=== PATIENT | male | born 1950 | race Caucasian/White ===

== ENCOUNTER 2017-12-20 11:58 | Emergency (ER) | payer MEDICARE, SELFPAY ==
[2017-12-20 12:23] VITALS: BP 128/73; PULSE 94; RESP 18; TEMP 36.9; O2SAT 98; BMI 28.5
[2017-12-20] MEDS: SODIUM CHLORIDE 0.9% 1,000 ML 150 ML IV (13:02)
[2017-12-20 13:06] LABS: Add Manual Diff / Slide Review NO; Basophils Percent Auto 0.7 % (0-2); Eosinophils Percent Auto 1.9 % (2-4); Hematocrit 33.3 % (41-53); Hemoglobin 11.4 g/dL (13.5-17.5); Lymphocytes Percent Auto 20.9 % (25-40); Mean Corpuscular HGB Conc 34.3 % (30-36); Mean Corpuscular Hemoglobin 33.3 PG (26-34); Monocytes Percent Auto 18.6 % (3-14); Neutrophils Absolute Auto 5500 /uL (3000-5900); Neutrophils Percent Auto 57.9 % (50-75); Platelet Count 173 X10^3/uL (150-400); Red Blood Cell Count 3.43 X10^6/uL (4.5-5.9); Red Cell Distribution Width 13.9 % (11.6-14.8); White Blood Cell Count 9.4 X10^3/uL (4.5-11.0)
[2017-12-20 13:18] LABS: Alanine Aminotransferase 25 IU/L (21-72); Albumin 4.7 g/dL (3.5-5.0); Albumin Globulin Ratio 1.4 (1.0-2.8); Alkaline Phosphatase 53 U/L (38-126); Aspartate Aminotransferase 19 IU/L (17-59); BUN Creatinine Ratio 16.4 (6-22); Bilirubin Total 0.6 mg/dL (0.2-1.3); Blood Urea Nitrogen 18 mg/dL (9-20); Calcium 9.2 mg/dL (8.4-10.2); Carbon Dioxide 22 mmol/L (22-32); Chloride 108 mmol/L (98-107); Estimated Glomerular Filt Rate > 60.0 mL/min (>60); Globulin 3.4 g/dL (1.7-4.1); Glucose 105 mg/dL (80-110); HEMOLYSIS 21 (0-50); Lipase 55 U/L (23-300); Potassium 4.2 mmol/L (3.4-5.1); Sodium 142 mmol/L (137-145); Total Protein 8.1 g/dL (6.3-8.2)
--- NOTE | 2017-12-20 14:06 | ED.ABDPAIN ---
HPI - Abdominal Pain <Penny Goode PA-C - Last Filed: 12/20/17 22:24> General Chief Complaint: Abdominal Pain Stated Complaint: lower right abdominal pain Time Seen by Provider: 12/20/17 13:47 Source: patient Mode of arrival: ambulatory Limitations: no limitations History of Present Illness HPI narrative: This 67-year-old male comes in to to 1 month history of gradually worsening abdominal pain. He states this is mainly on the right side, indicates the right upper quadrant, sometimes he can feel this in the flank area as well. He states that initially this started after eating hamburger and he thought it was food poisoning, however it seems to wax and wane regardless of what he eats. He states he ate pizza last week and it definitely her more afterwards and cause some nausea. He states that he had a few mozzarella sticks last night that seemed to cause a lot of bloating. He does not think bland foods are bothersome. He states that he has not had any vomiting and only a few episodes of nausea. He states he felt a little chilled this morning with a brief temperature of 99?, otherwise no fever, chills, or sweats. He denies any chest pain or dyspnea. He states that when pain is fairly severe and can be hard to take a deep breath at times. He denies any reflux and states he does have this and pain is not the same. He states it is not like his previous ulcer either. He states he has had normal bowel movements, no blood in the stools. He denies any urinary symptoms. He denies any rash or other new c/o Related Data Home Medications Medication Instructions Recorded Confirmed meloxicam [Mobic] 15 mg PO [facility] #30 tab 01/01/16 Previous Rx's Medication Instructions Recorded hydrocodone-acetaminophen [[place]] 1 tab PO .HS PRN #5 tab 12/20/17 Allergies Allergy/AdvReac Type Severity Reaction Status Date / Time No Known Drug Allergies Allergy Verified 12/20/17 12:22 Review of Systems <Penny Goode PA-C - Last Filed: 12/20/17 22:24> Review of Systems All systems reviewed & are unremarkable except as noted in HPI and below PFSH <Penny Goode PA-C - Last Filed: 12/20/17 22:24> Comment: ETOH 1-2/day Exam <Penny Goode PA-C - Last Filed: 12/20/17 22:24> Narrative Exam Narrative: GENERAL APPEARANCE: Patient sitting comfortably, in no distress, playing a game on cell phone. HEENT: PERRL, EOMI, no scleral icterus NECK: Supple LUNGS: Clear to auscultation bilaterally. HEART: Rate and rhythm regular, normal S1 and S2, no S3 or S4. ABDOMEN: Soft, nondistended, bowel sounds present x 4 quadrants, no masses palpable. Right upper quadrant is tender with positive Haynes's sign. No rebound. No guarding. Minimal tenderness right mid and lower quadrant. Mild tenderness over the right flank. None on the left. Liver border is palpable at the costal margin, no splenomegaly. EXTREMITIES: No edema, no calf tenderness DERMATOLOGIC: No jaundice or exanthem NEUROLOGIC: Alert and oriented with normal speech and coordination Initial Vital Signs Initial Vital Signs: Vital Signs Temperature 98.4 F 12/20/17 12:23 Pulse Rate 94 H 12/20/17 12:23 Respiratory Rate 18 12/20/17 12:23 Blood Pressure 128/73 12/20/17 12:23 Pulse Oximetry 98 12/20/17 12:23 <Lurdes Brooks DO - Last Filed: 12/21/17 10:08> Initial Vital Signs Initial Vital Signs: Vital Signs Temperature 98.4 F 12/20/17 12:23 Pulse Rate 94 H 12/20/17 12:23 Respiratory Rate 18 12/20/17 12:23 Blood Pressure 128/73 12/20/17 12:23 Pulse Oximetry 98 12/20/17 12:23 Course <Penny Goode PA-C - Last Filed: 12/20/17 22:24> Additional Information: Patient is not having any acutely worsening pain today. He is not having vomiting or fever. He has had ongoing symptoms for about a month. Advised no acute findings on lab work or ultrasound, however this does need follow-up and may need further imaging such as a CT scan. He is agreeable and will follow up with his PCP for further evaluation. He agreed to return here if any acutely worsening symptoms in the interim Orders Ordered: Discontinued Medications Sodium Chloride (Normal Saline 0.9%) 1,000 mls @ 150 mls/hr IV CONT LAUREN Last Admin: 12/20/17 13:02 Dose: 150 mls/hr Vital Signs - 8 hr 12/20/17 15:22 Pulse Rate 77 Blood Pressure [Right Arm] 124/71 Pulse Oximetry 100 <Lurdes Brooks DO - Last Filed: 12/21/17 10:08> Orders Ordered: Discontinued Medications Sodium Chloride (Normal Saline 0.9%) 1,000 mls @ 150 mls/hr IV CONT LAUREN Last Admin: 12/20/17 13:02 Dose: 150 mls/hr Vital Signs - 8 hr 12/20/17 15:22 Pulse Rate 77 Blood Pressure [Right Arm] 124/71 Pulse Oximetry 100 MDM - Abdominal Pain <Penny Goode PA-C - Last Filed: 12/20/17 22:24> Lab Data Attestation: I reviewed the patient's lab results. Result diagrams: 12/20/17 13:00 12/20/17 13:00 Lab Results 12/20/17 12/20/17 Range/Units 13:00 13:00 WBC 9.4 (4.5-11.0) X10^3/uL RBC 3.43 L (4.5-5.9) X10^6/uL Hgb 11.4 L (13.5-17.5) g/dL Hct 33.3 L (41-53) % MCV 97.0 (80-100) fL MCH 33.3 (26-34) PG MCHC 34.3 (30-36) % RDW 13.9 (11.6-14.8) % Plt Count 173 (150-400) X10^3/uL Neut % (Auto) 57.9 (50-75) % Lymph % (Auto) 20.9 L (25-40) % [place] % (Auto) 18.6 H (3-14) % Eos % (Auto) 1.9 L (2-4) % Baso % (Auto) 0.7 (0-2) % Neut # (Auto) 5500 (0649-5802) /uL Sodium 142 (137-145) mmol/L Potassium 4.2 (3.4-5.1) mmol/L Chloride 108 H (98-107) mmol/L Carbon Dioxide 22 (22-32) mmol/L BUN 18 (9-20) mg/dL Creatinine 1.10 (0.66-1.25) mg/dL Estimated GFR > 60.0 (>60) mL/min BUN/Creatinine Ratio 16.4 (6-22) Glucose 105 (80-110) mg/dL Calcium 9.2 (8.4-10.2) mg/dL Total Bilirubin 0.6 (0.2-1.3) mg/dL AST 19 (17-59) IU/L ALT 25 (21-72) IU/L Alkaline Phosphatase 53 (38-126) U/L Total Protein 8.1 (6.3-8.2) g/dL Albumin 4.7 (3.5-5.0) g/dL Globulin 3.4 (1.7-4.1) g/dL Albumin/Globulin Ratio 1.4 (1.0-2.8) Lipase 55 (23-300) U/L Imaging Data US - abdomen: Radiologist's impression: [address] [address] Ultrasound Report Signed Patient: Naresh Olvera MR#: [id number] : 1950 Acct:[id number] Age/Sex: 67 / M Date of Service: 12/20/17 Loc: ED Accession Number: [id number] Procedure: US abdomen complete Ordering Provider: Penny Goode P.A-C PROCEDURE: US ABDOMEN COMPLETE INDICATIONS: RIGHT UPPER QUADRANT PAIN TECHNIQUE: Real-time scanning was performed of the abdominal and retroperitoneal organs, with image documentation. COMPARISON: [facility], CT, NECK/CHEST/ABD/PEL W/CONT (P), 05/30/2013, 10:27. FINDINGS: Liver: Liver is normal in size. There is a 12 x 16 x 19 mm focus of hypoechogenicity within the posterior right lobe most suggestive of cyst. It is unchanged. Gallbladder: Gallbladder demonstrates no gross abnormality. It is not well-visualized secondary to patient body habitus. The wall appears to be within normal limits measuring approximately 1.9 mm. Biliary ducts: Intrahepatic bile ducts are non-dilated. Extrahepatic bile duct caliber measures 4.3 mm. Normal is 6-7 mm or less in diameter, or 10 mm or less post-cholecystectomy. Pancreas: Not visualized Spleen: Spleen is normal in size and homogeneous in echotexture. Kidneys: Kidneys are normal in size and echotexture. Right kidney measures 8.4 cm long; left kidney measures 10.5 cm long. No hydronephrosis or nephrolithiasis. No solid masses. Aorta: Visualized aorta is normal in caliber at less than 3 cm. Iliacs: Proximal common iliac arteries are normal in caliber at less than 2.5 cm. IVC: Intrahepatic inferior vena cava is patent. Miscellaneous: No free abdominal fluid. IMPRESSION: 1. No acute visualized cause of pain. Dictated by: Radha Mauricio M.D. on 12/20/2017 at 14:25 Approved by: Radha Mauricio M.D. on 12/20/2017 at 14:26 <Lurdes Brooks DO - Last Filed: 12/21/17 10:08> Lab Data Lab Results 12/20/17 12/20/17 Range/Units 13:00 13:00 WBC 9.4 (4.5-11.0) X10^3/uL RBC 3.43 L (4.5-5.9) X10^6/uL Hgb 11.4 L (13.5-17.5) g/dL Hct 33.3 L (41-53) % MCV 97.0 (80-100) fL MCH 33.3 (26-34) PG MCHC 34.3 (30-36) % RDW 13.9 (11.6-14.8) % Plt Count 173 (150-400) X10^3/uL Neut % (Auto) 57.9 (50-75) % Lymph % (Auto) 20.9 L (25-40) % [place] % (Auto) 18.6 H (3-14) % Eos % (Auto) 1.9 L (2-4) % Baso % (Auto) 0.7 (0-2) % Neut # (Auto) 5500 (5323-4588) /uL Sodium 142 (137-145) mmol/L Potassium 4.2 (3.4-5.1) mmol/L Chloride 108 H (98-107) mmol/L Carbon Dioxide 22 (22-32) mmol/L BUN 18 (9-20) mg/dL Creatinine 1.10 (0.66-1.25) mg/dL Estimated GFR > 60.0 (>60) mL/min BUN/Creatinine Ratio 16.4 (6-22) Glucose 105 (80-110) mg/dL Calcium 9.2 (8.4-10.2) mg/dL Total Bilirubin 0.6 (0.2-1.3) mg/dL AST 19 (17-59) IU/L ALT 25 (21-72) IU/L Alkaline Phosphatase 53 (38-126) U/L Total Protein 8.1 (6.3-8.2) g/dL Albumin 4.7 (3.5-5.0) g/dL Globulin 3.4 (1.7-4.1) g/dL Albumin/Globulin Ratio 1.4 (1.0-2.8) Lipase 55 (23-300) U/L Discharge Plan Departure Patient Disposition: Home Clinical Impression: Intermittent right upper quadrant abdominal pain Discharge Date/Time: 12/20/17 15:39 Interventions: ED Discharge Assessment Last Done: 12/20/17 15:38 Instructions: DI for Abdominal Pain-Adult Activity Restrictions/Additional Instructions: Please return as we talked about if you have any acutely worsening symptoms, or new symptoms such as persistent vomiting or high fever. Your lab work and ultrasound did not show any acute findings on the crown and bridge dental lab technician reading today. I will phone you if the radiologist finds any other concerns. Please call your PCP today and schedule a follow-up appointment as she may want to have you do other studies such as a CT scan. You should avoid fatty foods in the interim to see if that is helpful, and please follow up with her in the next week. I have given you a prescription for a few hydrocodone/acetaminophen in case you need to take 1 at night for pain. Prescriptions: New hydrocodone-acetaminophen [[place]] 5-325 mg tablet 1 tab PO .HS PRN (Reason: abdominal pain) Qty: 5 RF: 0 No Action meloxicam [Mobic] 15 MG tablet 15 mg PO [facility] Qty: 30 RF: 0 Referrals: Emerita James [Other] <Lurdes Brooks, DO - Last Filed: 12/21/17 10:08> Cosign ED Attending Jose Attestation: I was immediately available in the department for consultation. Documentation has been reviewed. I agree with assessment and plan.
--- NOTE | 2017-12-20 14:28 | DI.US.S_ITS ---
PROCEDURE: US ABDOMEN COMPLETE INDICATIONS: RIGHT UPPER QUADRANT PAIN TECHNIQUE: Real-time scanning was performed of the abdominal and retroperitoneal organs, with image documentation. COMPARISON: [facility], CT, NECK/CHEST/ABD/PEL W/CONT (P), 05/30/2013, 10:27. FINDINGS: Liver: Liver is normal in size. There is a 12 x 16 x 19 mm focus of hypoechogenicity within the posterior right lobe most suggestive of cyst. It is unchanged. Gallbladder: Gallbladder demonstrates no gross abnormality. It is not well-visualized secondary to patient body habitus. The wall appears to be within normal limits measuring approximately 1.9 mm. Biliary ducts: Intrahepatic bile ducts are non-dilated. Extrahepatic bile duct caliber measures 4.3 mm. Normal is 6-7 mm or less in diameter, or 10 mm or less post-cholecystectomy. Pancreas: Not visualized Spleen: Spleen is normal in size and homogeneous in echotexture. Kidneys: Kidneys are normal in size and echotexture. Right kidney measures 8.4 cm long; left kidney measures 10.5 cm long. No hydronephrosis or nephrolithiasis. No solid masses. Aorta: Visualized aorta is normal in caliber at less than 3 cm. Iliacs: Proximal common iliac arteries are normal in caliber at less than 2.5 cm. IVC: Intrahepatic inferior vena cava is patent. Miscellaneous: No free abdominal fluid. IMPRESSION: 1. No acute visualized cause of pain. Dictated by: Radha Mauricio M.D. on 12/20/2017 at 14:25 Approved by: Radha Mauricio M.D. on 12/20/2017 at 14:26
--- NOTE | 2017-12-20 14:38 | ED_ITS ---
HPI - Abdominal Pain <Penny Goode PA-C - Last Filed: 12/20/17 22:24> General Chief Complaint: Abdominal Pain Stated Complaint: lower right abdominal pain Time Seen by Provider: 12/20/17 13:47 Source: patient Mode of arrival: ambulatory Limitations: no limitations History of Present Illness HPI narrative: This 67-year-old male comes in to to 1 month history of gradually worsening abdominal pain. He states this is mainly on the right side , indicates the right upper quadrant, sometimes he can feel this in the flank area as well. He states that initially this started after eating hamburger and he thought it was food poisoning, however it seems to wax and wane regardless of what he eats. He states he ate pizza last week and it definitely her more afterwards and cause some nausea. He states that he had a few mozzarella sticks last night that seemed to cause a lot of bloating. He does not think bland foods are bothersome. He states that he has not had any vomiting and only a few episodes of nausea. He states he felt a little chilled this morning with a brief temperature of 99?, otherwise no fever, chills, or sweats. He denies any chest pain or dyspnea. He states that when pain is fairly severe and can be hard to take a deep breath at times. He denies any reflux and states he does have this and pain is not the same. He states it is not like his previous ulcer either. He states he has had normal bowel movements, no blood in the stools. He denies any urinary symptoms. He denies any rash or other new c/o Related Data Home Medications Medication Instructions Recorded Confirmed meloxicam [Mobic] 15 mg PO [facility] #30 tab 01/01/16 Previous Rx's Medication Instructions Recorded hydrocodone-acetaminophen [[place]] 1 tab PO .HS PRN #5 tab 12/20/17 Allergies Allergy/AdvReac Type Severity Reaction Status Date / Time No Known Drug Allergies Allergy Verified 12/20/17 12:22 Review of Systems <Penny Goode PA-C - Last Filed: 12/20/17 22:24> Review of Systems All systems reviewed & are unremarkable except as noted in HPI and below PFSH <Penny Goode PA-C - Last Filed: 12/20/17 22:24> Comment: ETOH 1-2/day Exam <Penny Goode PA-C - Last Filed: 12/20/17 22:24> Narrative Exam Narrative: GENERAL APPEARANCE: Patient sitting comfortably, in no distress , playing a game on cell phone. HEENT: PERRL, EOMI, no scleral icterus NECK: Supple LUNGS: Clear to auscultation bilaterally. HEART: Rate and rhythm regular, normal S1 and S2, no S3 or S4. ABDOMEN: Soft, nondistended, bowel sounds present x 4 quadrants, no masses palpable. Right upper quadrant is tender with positive Haynes's sign. No rebound. No guarding. Minimal tenderness right mid and lower quadrant. Mild tenderness over the right flank. None on the left. Liver border is palpable at the costal margin, no splenomegaly. EXTREMITIES: No edema, no calf tenderness DERMATOLOGIC: No jaundice or exanthem NEUROLOGIC: Alert and oriented with normal speech and coordination Initial Vital Signs Initial Vital Signs: Vital Signs Temperature 98.4 F 12/20/17 12:23 Pulse Rate 94 H 12/20/17 12:23 Respiratory Rate 18 12/20/17 12:23 Blood Pressure 128/73 12/20/17 12:23 Pulse Oximetry 98 12/20/17 12:23 <Lurdes Brooks DO - Last Filed: 12/21/17 10:08> Initial Vital Signs Initial Vital Signs: Vital Signs Temperature 98.4 F 12/20/17 12:23 Pulse Rate 94 H 12/20/17 12:23 Respiratory Rate 18 12/20/17 12:23 Blood Pressure 128/73 12/20/17 12:23 Pulse Oximetry 98 12/20/17 12:23 Course <Penny Goode PA-C - Last Filed: 12/20/17 22:24> Additional Information: Patient is not having any acutely worsening pain today. He is not having vomiting or fever. He has had ongoing symptoms for about a month. Advised no acute findings on lab work or ultrasound, however this does need follow-up and may need further imaging such as a CT scan. He is agreeable and will follow up with his PCP for further evaluation. He agreed to return here if any acutely worsening symptoms in the interim Orders Ordered: Discontinued Medications Sodium Chloride (Normal Saline 0.9%) 1,000 mls @ 150 mls/hr IV CONT LAUREN Last Admin: 12/20/17 13:02 Dose: 150 mls/hr Vital Signs - 8 hr 12/20/17 15:22 Pulse Rate 77 Blood Pressure [Right Arm] 124/71 Pulse Oximetry 100 <Lurdes Brooks DO - Last Filed: 12/21/17 10:08> Orders Ordered: Discontinued Medications Sodium Chloride (Normal Saline 0.9%) 1,000 mls @ 150 mls/hr IV CONT LAUREN Last Admin: 12/20/17 13:02 Dose: 150 mls/hr Vital Signs - 8 hr 12/20/17 15:22 Pulse Rate 77 Blood Pressure [Right Arm] 124/71 Pulse Oximetry 100 MDM - Abdominal Pain <Penny Goode PA-C - Last Filed: 12/20/17 22:24> Lab Data Attestation: I reviewed the patient's lab results. Result diagrams: 12/20/17 13:00 12/20/17 13:00 Lab Results 12/20/17 12/20/17 Range/Units 13:00 13:00 WBC 9.4 (4.5-11.0) X10^3/uL RBC 3.43 L (4.5-5.9) X10^6/uL Hgb 11.4 L (13.5-17.5) g/dL Hct 33.3 L (41-53) % MCV 97.0 (80-100) fL MCH 33.3 (26-34) PG MCHC 34.3 (30-36) % RDW 13.9 (11.6-14.8) % Plt Count 173 (150-400) X10^3/uL Neut % (Auto) 57.9 (50-75) % Lymph % (Auto) 20.9 L (25-40) % [place] % (Auto) 18.6 H (3-14) % Eos % (Auto) 1.9 L (2-4) % Baso % (Auto) 0.7 (0-2) % Neut # (Auto) 5500 (1090-1105) /uL Sodium 142 (137-145) mmol/L Potassium 4.2 (3.4-5.1) mmol/L Chloride 108 H (98-107) mmol/L Carbon Dioxide 22 (22-32) mmol/L BUN 18 (9-20) mg/dL Creatinine 1.10 (0.66-1.25) mg/dL Estimated GFR > 60.0 (>60) mL/min BUN/Creatinine Ratio 16.4 (6-22) Glucose 105 (80-110) mg/dL Calcium 9.2 (8.4-10.2) mg/dL Total Bilirubin 0.6 (0.2-1.3) mg/dL AST 19 (17-59) IU/L ALT 25 (21-72) IU/L Alkaline Phosphatase 53 (38-126) U/L Total Protein 8.1 (6.3-8.2) g/dL Albumin 4.7 (3.5-5.0) g/dL Globulin 3.4 (1.7-4.1) g/dL Albumin/Globulin Ratio 1.4 (1.0-2.8) Lipase 55 (23-300) U/L Imaging Data US - abdomen: Radiologist's impression: [address] [address] Ultrasound Report Signed Patient: Naresh Olvera MR#: [id number] : 1950 Acct:[id number] Age/Sex: 67 / M Date of Service: 12/20/17 Loc: ED Accession Number: [id number] Procedure: US abdomen complete Ordering Provider: Penny Goode P.A-C PROCEDURE: US ABDOMEN COMPLETE INDICATIONS: RIGHT UPPER QUADRANT PAIN TECHNIQUE: Real-time scanning was performed of the abdominal and retroperitoneal organs, with image documentation. COMPARISON: [facility], CT, NECK/CHEST/ABD/PEL W/CONT (P), 2013, 10:27. FINDINGS: Liver: Liver is normal in size. There is a 12 x 16 x 19 mm focus of hypoechogenicity within the posterior right lobe most suggestive of cyst. It is unchanged. Gallbladder: Gallbladder demonstrates no gross abnormality. It is not well- visualized secondary to patient body habitus. The wall appears to be within normal limits measuring approximately 1.9 mm. Biliary ducts: Intrahepatic bile ducts are non-dilated. Extrahepatic bile duct caliber measures 4.3 mm. Normal is 6-7 mm or less in diameter, or 10 mm or less post-cholecystectomy. Pancreas: Not visualized Spleen: Spleen is normal in size and homogeneous in echotexture. Kidneys: Kidneys are normal in size and echotexture. Right kidney measures 8.4 cm long; left kidney measures 10.5 cm long. No hydronephrosis or nephrolithiasis. No solid masses. Aorta: Visualized aorta is normal in caliber at less than 3 cm. Iliacs: Proximal common iliac arteries are normal in caliber at less than 2.5 cm. IVC: Intrahepatic inferior vena cava is patent. Miscellaneous: No free abdominal fluid. IMPRESSION: 1. No acute visualized cause of pain. Dictated by: Radha Mauricio M.D. on 12/20/2017 at 14:25 Approved by: Radha Mauricio M.D. on 12/20/2017 at 14:26 <Lurdes Brooks DO - Last Filed: 12/21/17 10:08> Lab Data Lab Results 12/20/17 12/20/17 Range/Units 13:00 13:00 WBC 9.4 (4.5-11.0) X10^3/uL RBC 3.43 L (4.5-5.9) X10^6/uL Hgb 11.4 L (13.5-17.5) g/dL Hct 33.3 L (41-53) % MCV 97.0 (80-100) fL MCH 33.3 (26-34) PG MCHC 34.3 (30-36) % RDW 13.9 (11.6-14.8) % Plt Count 173 (150-400) X10^3/uL Neut % (Auto) 57.9 (50-75) % Lymph % (Auto) 20.9 L (25-40) % [place] % (Auto) 18.6 H (3-14) % Eos % (Auto) 1.9 L (2-4) % Baso % (Auto) 0.7 (0-2) % Neut # (Auto) 5500 (3207-1877) /uL Sodium 142 (137-145) mmol/L Potassium 4.2 (3.4-5.1) mmol/L Chloride 108 H (98-107) mmol/L Carbon Dioxide 22 (22-32) mmol/L BUN 18 (9-20) mg/dL Creatinine 1.10 (0.66-1.25) mg/dL Estimated GFR > 60.0 (>60) mL/min BUN/Creatinine Ratio 16.4 (6-22) Glucose 105 (80-110) mg/dL Calcium 9.2 (8.4-10.2) mg/dL Total Bilirubin 0.6 (0.2-1.3) mg/dL AST 19 (17-59) IU/L ALT 25 (21-72) IU/L Alkaline Phosphatase 53 (38-126) U/L Total Protein 8.1 (6.3-8.2) g/dL Albumin 4.7 (3.5-5.0) g/dL Globulin 3.4 (1.7-4.1) g/dL Albumin/Globulin Ratio 1.4 (1.0-2.8) Lipase 55 (23-300) U/L Discharge Plan Departure Patient Disposition: Home Clinical Impression: Intermittent right upper quadrant abdominal pain Discharge Date/Time: 12/20/17 15:39 Interventions: ED Discharge Assessment Last Done: 12/20/17 15:38 Instructions: DI for Abdominal Pain-Adult Activity Restrictions/Additional Instructions: Please return as we talked about if you have any acutely worsening symptoms, or new symptoms such as persistent vomiting or high fever. Your lab work and ultrasound did not show any acute findings on the library acquisitions technician reading today. I will phone you if the radiologist finds any other concerns. Please call your PCP today and schedule a follow-up appointment as she may want to have you do other studies such as a CT scan. You should avoid fatty foods in the interim to see if that is helpful, and please follow up with her in the next week. I have given you a prescription for a few hydrocodone/acetaminophen in case you need to take 1 at night for pain. Prescriptions: New hydrocodone-acetaminophen [[place]] 5-325 mg tablet 1 tab PO .HS PRN (Reason: abdominal pain) Qty: 5 RF: 0 No Action meloxicam [Mobic] 15 MG tablet 15 mg PO [facility] Qty: 30 RF: 0 Referrals: Emerita James [Other] <Lurdes Brooks, DO - Last Filed: 12/21/17 10:08> Cosign ED Attending Jose Attestation: I was immediately available in the department for consultation. Documentation has been reviewed. I agree with assessment and plan.
[2017-12-20 15:22] VITALS: BP 124/71; PULSE 77; O2SAT 100
--- NOTE | 2018-01-13 17:49 | PC.NURSE ---
pt ivf finished around 1530 on 12/20/17.
== END 2017-12-20 15:39 | disposition home or self-care (01) ==
PROVIDERS: Emergency Medicine; Emergency Provider Internal Medicine; Family Provider Physician Assistant Medical; PCP Physician Assistant Medical
DX: R10.11 Right upper quadrant pain (principal)
CPT/HCPCS: 36591; 76700; 80053; 83690; 85025; 96360; 96361; 99282; 99284

== ENCOUNTER 2018-03-26 20:14 | Emergency (ER) | payer MEDICARE, SELFPAY ==
[2018-03-26 20:25] VITALS: BP 143/85; PULSE 69; RESP 20; TEMP 36.6; O2SAT 100
--- NOTE | 2018-03-26 20:37 | ED_ITS ---
HPI - Abdominal Pain General Chief Complaint: Abdominal Pain Stated Complaint: GALLBLADDER PAIN Time Seen by Provider: 03/26/18 20:35 Source: patient Mode of arrival: ambulatory Limitations: no limitations History of Present Illness HPI narrative: Patient is a 67-year-old male with known gallstones. Cyst diagnosed several years ago. He has been maintaining it with diet. He states that over the past several weeks he has been having pain more frequently. It has been worsening over the past couple days. No fevers. Some nausea. No change in bowel habits. Related Data Home Medications Medication Instructions Recorded Confirmed meloxicam [Mobic] 15 mg PO AMCC #30 tab 01/01/16 Previous Rx's Medication Instructions Recorded hydrocodone-acetaminophen [[place]] 1 tab PO .HS PRN #5 tab 12/20/17 Allergies Allergy/AdvReac Type Severity Reaction Status Date / Time No Known Drug Allergies Allergy Verified 03/26/18 20:23 Review of Systems Constitutional Denies fever(s) and Denies headache(s) ENT Ears, Nose, Mouth, and Throat: Denies headache(s) Cardiovascular Denies chest pain and Denies dyspnea Respiratory Denies dyspnea Gastrointestinal Gastrointestinal: Reports abdominal pain, Denies coffee ground emesis, Denies constipation, Denies diarrhea, Reports nausea and Denies vomiting Genitourinary Denies dysuria Musculoskeletal Denies myalgias and Denies arthralgias Integumentary/Breasts Denies lesions and Denies rash Neurologic Denies headache(s) Hematologic/Lymphatic Comments: Not on anticoagulation PFSH Medical History Dupuytren contracture (Chronic) GERD (gastroesophageal reflux disease) (Chronic) HTN (hypertension) (Chronic) History of ulcer disease (Chronic) Rotator cuff syndrome of right shoulder (Chronic) Mantle cell lymphoma (Resolved) Surgical History No pertinent past surgical history (Acute) Social History Smoking Status: Former smoker Exam Initial Vital Signs Initial Vital Signs: Vital Signs Temperature 97.9 F 03/26/18 20:25 Pulse Rate 69 03/26/18 20:25 Respiratory Rate 20 03/26/18 20:25 Blood Pressure 143/85 H 03/26/18 20:25 Pulse Oximetry 100 03/26/18 20:25 Const General: cooperative, healthy appearing, well developed, well groomed and No acute distress Orientation: alert, awake and oriented x3 HENMT Head: normal to inspection and normocephalic Resp Effort & Inspection: normal respiratory effort Auscultation: clear to auscultation bilaterally Cardio Rate: regular rate Rhythm: regular rhythm Pulses: radial pulses present GI Inspection: non-distended Palpation: soft, No firm and tender (Right upper quadrant. Positive Haynes sign ) Back/Spine/Pelvis Back: No CVA tenderness Skin Lesions: no lesions Rashes: no rashes Neuro General: alert, awake and oriented x3 Cognition: normal cognition Speech: speech normal Motor: muscle tone normal throughout Sensory Exam: no sensory deficits noted Extrem General: normal to inspection and capillary refill normal Psych Appearance: grossly normal and well kempt Course Orders Ordered: ED Orders 03/26/18 20:44 US abdomen complete Stat 03/26/18 21:10 Complete Blood Count AUTO DIFF Stat Comprehensive Metabolic Panel Stat Lipase Stat Discontinued Medications Hydromorphone HCl (Dilaudid) 0.5 mg IV NOW ONE Stop: 03/26/18 20:44 Last Admin: 03/26/18 21:07 Dose: 0.5 mg Sodium Chloride (Normal Saline 0.9%) 1,000 mls @ 125 mls/hr IV CONT LAUREN Last Infusion: 03/26/18 23:13 Dose: 125 mls/hr Admin: 03/26/18 21:07 Dose: 125 mls/hr Ondansetron HCl (Zofran) 4 mg IV NOW ONE Stop: 03/26/18 20:44 Last Admin: 03/26/18 21:07 Dose: 4 mg Ondansetron HCl (Zofran) 4 mg IV NOW ONE Stop: 03/26/18 23:09 Last Admin: 03/26/18 23:13 Dose: 4 mg Vital Signs - 8 hr 03/26/18 20:25 03/26/18 22:58 Temperature 97.9 F 98.4 F Pulse Rate 69 77 Respiratory Rate 20 16 Blood Pressure 143/85 H Blood Pressure [Right Arm] 123/79 Pulse Oximetry 100 96 MDM - Abdominal Pain Lab Data Attestation: I reviewed the patient's lab results. Result diagrams: 03/26/18 21:10 03/26/18 21:10 Lab Results 03/26/18 03/26/18 Range/Units 21:10 21:10 WBC 6.3 (4.5-11.0) X10^3/uL RBC 3.41 L (4.5-5.9) X10^6/uL Hgb 11.3 L (13.5-17.5) g/dL Hct 33.1 L (41-53) % MCV 97.2 (80-100) fL MCH 33.2 (26-34) PG MCHC 34.2 (30-36) % RDW 13.4 (11.6-14.8) % Plt Count 156 (150-400) X10^3/uL Neut % (Auto) 48.3 L (50-75) % Lymph % (Auto) 33.1 (25-40) % [place] % (Auto) 16.1 H (3-14) % Eos % (Auto) 1.5 L (2-4) % Baso % (Auto) 1.0 (0-2) % Neut # (Auto) 3000 (2484-4962) /uL Sodium 142 (137-145) mmol/L Potassium 3.8 (3.4-5.1) mmol/L Chloride 107 (98-107) mmol/L Carbon Dioxide 22 (22-32) mmol/L BUN 19 (9-20) mg/dL Creatinine 1.10 (0.66-1.25) mg/dL Estimated GFR > 60.0 (>60) mL/min BUN/Creatinine Ratio 17.3 (6-22) Glucose 111 H (80-110) mg/dL Calcium 9.4 (8.4-10.2) mg/dL Total Bilirubin 0.3 (0.2-1.3) mg/dL AST 16 L (17-59) IU/L ALT 18 L (21-72) IU/L Alkaline Phosphatase 56 (38-126) U/L Total Protein 7.8 (6.3-8.2) g/dL Albumin 4.6 (3.5-5.0) g/dL Globulin 3.2 (1.7-4.1) g/dL Albumin/Globulin Ratio 1.4 (1.0-2.8) Lipase 60 (23-300) U/L Imaging Data US - abdomen: Radiologist's impression: [address] [address] Ultrasound Report Signed Patient: Naresh Olvera MR#: [id number] : 1950 Acct:[id number] Age/Sex: 67 / M Date of Service: 03/26/18 Loc: ED Accession Number: [id number] Procedure: US abdomen complete Ordering Provider: Naresh Glover D.O. PROCEDURE: US ABDOMEN COMPLETE INDICATIONS: PAIN; KNOWN GALLSTONES TECHNIQUE: Real-time scanning was performed of the abdominal and retroperitoneal organs, with image documentation. COMPARISON: None. FINDINGS: Liver: The liver measures 17.4 cm in length and demonstrates increased echogenicity. A simple hepatic cyst which measures 1.8 cm in diameter is present within the right lobe. Gallbladder: The gallbladder wall measures 1.0 mm in diameter. A 1 cm stone is present within the gallbladder neck. Biliary ducts: Intrahepatic bile ducts are non-dilated. Extrahepatic bile duct is not well-visualized. The common hepatic duct measures 6.1 mm in diameter. Normal is 6-7 mm or less in diameter, or 10 mm or less post-cholecystectomy. Pancreas: The pancreas is not well-visualized. Spleen: Spleen is normal in size and homogeneous in echotexture. Kidneys: Kidneys are normal in size and echotexture. Right kidney measures 9.8 cm long; left kidney measures 10.9 cm long. No hydronephrosis or nephrolithiasis. No solid masses. Aorta: Visualized aorta is normal in caliber at less than 3 cm. Iliacs: The iliacs are not visualized. IVC: Intrahepatic inferior vena cava is patent. Miscellaneous: No free abdominal fluid. IMPRESSION: 1. Increased hepatic echogenicity suggesting hepatic steatosis although other sources of hepatocellular dysfunction could also be considered in differential. 2. Cholelithiasis. No findings to suggest choledocholithiasis or acute cholecystitis. Dictated by: Dayan Silva M.D. on 03/26/2018 at 21:37 Approved by: Dayan Silva M.D. on 03/26/2018 at 21:39 MDM Narrative Medical decision making narrative: Patient again showing cholelithiasis without signs of cholecystitis. LFTs and lipase unremarkable. Symptoms controlled with medicines here in the emergency department. I discussed the case with Dr. Flores who is on-call for General surgery who states that given the patient is afebrile, no white blood cell count, no change in LFTs or lipase and symptoms controlled with medicines that he can be followed up as an outpatient. The patient was given phone number. He is also instructed to contact his insurance company and also his primary care doctor. Patient has medication at home. He was given return precautions. He expressed understanding and agreement with plan. Discharge Plan Departure Patient Disposition: Home Clinical Impression: Cholelithiasis Discharge Date/Time: 03/26/18 23:21 Interventions: ED Discharge Assessment Last Done: 03/26/18 23:18 Instructions: DI for Gallstones Activity Restrictions/Additional Instructions: I recommend that you talk with her primary doctor, your insurance company about follow up with the surgeons. You can contact the [facility] at [phone]. I discussed your case tonight with Dr. Flores. You can return to the emergency department at any time for new or worsening symptoms Prescriptions: No Action meloxicam [Mobic] 15 MG tablet 15 mg PO AMCC Qty: 30 RF: 0 hydrocodone-acetaminophen [[place]] 5-325 mg tablet 1 tab PO .HS PRN (Reason: abdominal pain) Qty: 5 RF: 0
--- NOTE | 2018-03-26 20:44 | DI.US.S_ITS ---
PROCEDURE: US ABDOMEN COMPLETE INDICATIONS: PAIN; KNOWN GALLSTONES TECHNIQUE: Real-time scanning was performed of the abdominal and retroperitoneal organs, with image documentation. COMPARISON: None. FINDINGS: Liver: The liver measures 17.4 cm in length and demonstrates increased echogenicity. A simple hepatic cyst which measures 1.8 cm in diameter is present within the right lobe. Gallbladder: The gallbladder wall measures 1.0 mm in diameter. A 1 cm stone is present within the gallbladder neck. Biliary ducts: Intrahepatic bile ducts are non-dilated. Extrahepatic bile duct is not well-visualized. The common hepatic duct measures 6.1 mm in diameter. Normal is 6-7 mm or less in diameter, or 10 mm or less post-cholecystectomy. Pancreas: The pancreas is not well-visualized. Spleen: Spleen is normal in size and homogeneous in echotexture. Kidneys: Kidneys are normal in size and echotexture. Right kidney measures 9.8 cm long; left kidney measures 10.9 cm long. No hydronephrosis or nephrolithiasis. No solid masses. Aorta: Visualized aorta is normal in caliber at less than 3 cm. Iliacs: The iliacs are not visualized. IVC: Intrahepatic inferior vena cava is patent. Miscellaneous: No free abdominal fluid. IMPRESSION: 1. Increased hepatic echogenicity suggesting hepatic steatosis although other sources of hepatocellular dysfunction could also be considered in differential. 2. Cholelithiasis. No findings to suggest choledocholithiasis or acute cholecystitis. Dictated by: Dayan Silva M.D. on 03/26/2018 at 21:37 Approved by: Dayan Silva M.D. on 03/26/2018 at 21:39
[2018-03-26] MEDS: ONDANSETRON 4 MG/2 ML INJ IV ×2 (21:07→23:13)
[2018-03-26] MEDS: SODIUM CHLORIDE 0.9% 1,000 ML 125 ML IV (21:07)
[2018-03-26] MEDS: HYDROMORPHONE 0.5 MG INJ IV (21:07)
[2018-03-26 21:31] LABS: Add Manual Diff / Slide Review NO; Eosinophils Percent Auto 1.5 % (2-4); Hematocrit 33.1 % (41-53); Hemoglobin 11.3 g/dL (13.5-17.5); Lymphocytes Percent Auto 33.1 % (25-40); Mean Corpuscular HGB Conc 34.2 % (30-36); Mean Corpuscular Hemoglobin 33.2 PG (26-34); Mean Corpuscular Volume 97.2 fL (80-100); Monocytes Percent Auto 16.1 % (3-14); Neutrophils Absolute Auto 3000 /uL (1500-7000); Neutrophils Percent Auto 48.3 % (50-75); Platelet Count 156 X10^3/uL (150-400); Red Blood Cell Count 3.41 X10^6/uL (4.5-5.9); Red Cell Distribution Width 13.4 % (11.6-14.8); White Blood Cell Count 6.3 X10^3/uL (4.5-11.0)
[2018-03-26 21:35] LABS: Alanine Aminotransferase 18 IU/L (21-72); Albumin 4.6 g/dL (3.5-5.0); Albumin Globulin Ratio 1.4 (1.0-2.8); Alkaline Phosphatase 56 U/L (38-126); Aspartate Aminotransferase 16 IU/L (17-59); BUN Creatinine Ratio 17.3 (6-22); Bilirubin Total 0.3 mg/dL (0.2-1.3); Blood Urea Nitrogen 19 mg/dL (9-20); Calcium 9.4 mg/dL (8.4-10.2); Carbon Dioxide 22 mmol/L (22-32); Chloride 107 mmol/L (98-107); Estimated Glomerular Filt Rate > 60.0 mL/min (>60); Globulin 3.2 g/dL (1.7-4.1); Glucose 111 mg/dL (80-110); HEMOLYSIS < 15 (0-50); Lipase 60 U/L (23-300); Potassium 3.8 mmol/L (3.4-5.1); Sodium 142 mmol/L (137-145); Total Protein 7.8 g/dL (6.3-8.2)
[2018-03-26 22:58] VITALS: BP 123/79; PULSE 77; RESP 16; TEMP 36.9; O2SAT 96
== END 2018-03-26 23:21 | disposition home or self-care (01) ==
PROVIDERS: Emergency Provider Emergency Medicine; Family Provider Physician Assistant Medical; PCP Physician Assistant Medical
DX: K80.20 Calculus of gallbladder without cholecystitis without obstruction (principal)
CPT/HCPCS: 36591; 76700; 80053; 83690; 85025; 96361; 96374; 96375; 96376; 99283; 99284; J1170; J2405

== ENCOUNTER 2018-05-10 08:00 | Day surgery (SDC) | payer MEDICARE, SELFPAY ==
[2018-05-01 15:00] VITALS: BMI 27.8
[2018-05-10] VITALS (8 sets, daily range): BP systolic 104–130; BP diastolic 49–75; PULSE 62–77; RESP 11–26; TEMP 36.4–37; O2SAT 94–99; BMI 25.6
--- NOTE | 2018-05-10 | PATH_ITS ---
[facility] Accession Number: [id number] . 01 Material submitted: . GALLBLADDER . 02 Diagnosis: Gallbladder, Cholecystectomy: Chronic cholecystitis with cholelithiasis. Negative for dysplasia and malignancy. MRV/05/14/2018 . 02 Electronically signed: . Pema Garcia MD, Pathologist NPI- [id number] . 01 Gross description: . Received in formalin, labeled gallbladder, is an opened gallbladder (length-6.5 cm, diameter-2.2 cm) with elam-sal smooth shiny serosa and a patent cystic duct. No lymph nodes are identified. The lumen contains pale green clear tacky fluid and one yellow hard gritty calculus (0.8 x 0.8 x 0.7 cm) with a clear crystalline cut surface. The mucosa is sal smooth and flat. The wall is up to 0.1 cm thick. No nodules, masses or lesions are identified. Section code: (A1) cystic duct resection margin and two serial sections from the body; (A2) two longitudinal sections from the fundus. (([id number]) /MRV . 02 Pathologist provided ICD-10: K80.60 . 02 CPT . 710270 Performed at: 01 [facility] [address], [place], [place] [id number] MD Eb Hebert MD Phone: [phone] Performed at: 02 [facility] [address] [place], [place] [id number] MD Pema Garcia MD Phone: [phone]
--- NOTE | 2018-05-10 08:10 | PM.PREOP ---
Pre-operative Note Interval Note History & Physical reviewed/Exam performed by Physician: Yes Changes to H&P: No
[2018-05-10] MEDS: LACTATED RINGERS 1,000 ML 100 ML IV ×2 (08:30→09:52)
[2018-05-10] MEDS: CEFAZOLIN 2 GM/100 ML FROZ.PIGGY IV (08:32)
--- NOTE | 2018-05-10 08:51 | SUR.OPER ---
Supine on padded OR bed, head on pillow, arms secured on padded arm boards at <90 degrees abduction, legs uncrossed, safety belt at thigh, tape over blanket over lower legs, foot board.
[2018-05-10] MEDS: BUPIVACAINE 0.5% (PF) VIAL 30 ML INJ (09:08)
[2018-05-10] MEDS: fentaNYL 100 MCG/2 ML INJ 50 MCG IV ×2 (10:31→10:53)
--- NOTE | 2018-05-10 10:34 | PM.OP.1 ---
Operative Date/Time/Diagnoses Date of procedure: 05/10/18 Time of procedure: 10:05 Pre-op diagnosis: Cholelithiasis cholecystitis Post-op diagnosis: same Procedure & Clinicians Procedure: Lap choly with adhesiolysis Same procedure as scheduled: Yes Indications: Symptomatic gallbladder disease Surgeon: Dago Guzman Click Yes if Unassisted: Yes Anesthesia Type: General Operative Notes Findings: Adhesions of omentum adherent to the anterior abdominal wall and to the gallbladder. Gallbladder wall was fairly normal otherwise. Single stone felt within the specimen. Closure Type: primary Specimen(s): other (Gallbladder) Prosthetic devices, grafts, tissues, transplants, or devices: None Estimated Blood Loss (mL): 15 Procedure in detail: The patient was placed supine on the operating room table and underwent general endotracheal anesthesia. He was prepped and draped in usual fashion. Local anesthetic was infiltrated small incision made in the infraumbilical fold. It was carried down into the peritoneal cavity. Stay sutures of 0 Vicryl were placed in the fascia. A 12 mm cannula was inserted and the abdomen was insufflated. Patient was repositioned. Patient was noted to have extensive adhesions to the anterior abdominal wall inferior liver. These had to be taken down before I could do the operation. A port was placed medial to these incisions. A 5 it was 5 mm in size. Using principally sharp dissection with occasional cautery I dissected the adhesions off the anterior abdominal wall. Once freed this allowed me to visualize the gallbladder. The gallbladder was grasped and elevated. Adhesions of omentum to the gallbladder surface were taken down with blunt dissection and cautery. The end of the gallbladder was identified. Gallbladder is pretty thin walled with simple retraction there was leakage of bile. Identified what appeared to be the cystic duct and it from surrounding structures. Three clips were placed across it was divided leaving 2 in the patient. Similarly there were 2 vessels that appeared to possibly both the art arteries. Three clips were placed across these and they were divided leaving 2 in the patient. The gallbladder is then dissected with cautery from its bed in the liver. It was detached and placed in a bag and removed. Right upper quadrant irrigated and suctioned free of fluid. There was some bleeding from from the liver bed which was cauterized. Ultimately the bleeding was stopped. The ports were all removed. The stay sutures at the umbilicus were tied. An additional 2 0 PDS was placed between the 2 0 sutures. The wounds were irrigated. The skin was closed with interrupted 4 0 Polysorb subcuticular stitch and glue. The patient was awakened extubated taken recovery room good condition. Complications: none Condition: stable Disposition: PACU
--- NOTE | 2018-05-10 11:03 | SUR.PHASEII ---
Dr. Guzman notified pt c/o upper caren chest/shoulder pain, otherwise condition stable. no new orders.
[2018-05-10] MEDS: HYDROCODONE/ACET 5/325 TABLET 1 TAB PO (11:22)
== END 2018-05-10 12:53 | disposition home or self-care (01) ==
PROVIDERS: Family Provider Physician Assistant Medical; PCP Physician Assistant Medical; Visit Provider Specialist
PROC: 0FT44ZZ Resection of Gallbladder, Percutaneous Endoscopic Approach (ICD-10-PCS; CPT 47562; principal; 2018-05-10 08:45)
DX: K80.60 Calculus of gallbladder and bile duct with cholecystitis, unspecified, without obstruction (principal); I10 Essential (primary) hypertension; Z87.891 Personal history of nicotine dependence; K21.9 Gastro-esophageal reflux disease without esophagitis; F41.9 Anxiety disorder, unspecified; F32.9 Major depressive disorder, single episode, unspecified; K66.0 Peritoneal adhesions (postprocedural) (postinfection)
CPT/HCPCS: 47562; 88304; J0690; J1100; J1885; J2704; J3010